=== PATIENT | male | born 2005 | race Caucasian/White ===

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

== ENCOUNTER 2023-01-23 22:21 | Emergency (ER) | payer BC, SELFPAY ==
[2023-01-23 22:24] VITALS: BP 159/93; PULSE 52; RESP 16; TEMP 36.9; O2SAT 96
[2023-01-23 22:32] VITALS: BP 148/102; PULSE 105; RESP 18; O2SAT 99
--- NOTE | 2023-01-23 22:35 | ECG_ITS ---
Measurements Intervals [place] Rate: 90 P: 36 MT: 123 QRS: -4 QRSD: 90 T: 22 QT: 332 QTc: 407 Interpretive Statements SINUS RHYTHM BASELINE ARTIFACT- I, II NORMAL ECG NO PREVIOUS ECG AVAILABLE FOR COMPARISON Electronically Signed On 01-24-2023 6:59:30 CDT by Guicho Fernando D.O.
[2023-01-23 23:40] VITALS: BP 131/84; PULSE 97; RESP 18; O2SAT 100
--- NOTE | 2023-01-24 00:39 | ED.GENADULT ---
HPI - General Adult General Chief complaint: Anxiety Stated complaint: anxiety Time Seen by Provider: 01/24/23 00:04 History of Present Illness HPI narrative: 17M h/o bipolar non compliant with medications presented with increased life stressors. Per patient, he has been having increased life stressors including new of a child, which have caused him anxiety over the past year. He was unable to find a psychiatrist, so presented to the ED for further evaluation. Stopped taking his bipolar medications because he didn't like the side effects. Denied SI/HI/VH/AH. Denied medical complaints. Denied headache, chest pain, shortness of breath, abdominal pain, fevers, chills, nausea, vomiting, dysuria, diarrhea, sick contacts. Past Medical History: bipolar Medications: denied compliance Allergies: No known drug allergies Related Data Allergies Allergy/AdvReac Type Severity Reaction Status Date / Time No Known Allergies Allergy Verified 01/13/21 21:56 Review of Systems Review of Systems: See HPI [facility] Past Medical History Medical History No active medical problems Social History Social History Smoking status: Current every day smoker Tobacco type: e-cigarettes/vaping Alcohol intake: never Substance use: never Substance use type: does not use Living arrangements: with family Gender identity (if verbalized by the patient): Male Exam Narrative: General: Alert, calm and cooperative, no acute distress, phonating, sitting comfortably during visit HEENT: Pupils equal round and reactive to light, extra ocular movements intact, no conjunctival injection, head atraumatic, neck supple without meningismus Cardiovascular: Regular rate and rhythm, no visible jugular venous distension Respiratory: Lungs clear to auscultation bilaterally, no wheezing/rales/rhonchi Abdominal: soft, non-tender, non-distended, no guarding, no rebound/peritoneal signs, no costovertebral tenderness to palpation Back: no midline tenderness to palpation, no step offs Extremities: No edema, palpable peripheral pulses, warm, well perfused, no tenderness to bilateral calves Neurological: Alert, moving all extremities symmetrically, ambulating without deficit Psych: calm and cooperative, goal oriented, normal jerel of speech Course Vital Signs Vital signs: Vital Signs Temperature 98.5 F 07/25/23 22:24 Pulse Rate 52 L 01/23/23 22:24 Respiratory Rate 16 01/23/23 22:24 Blood Pressure 159/93 H 01/23/23 22:24 Pulse Oximetry 96 01/23/23 22:24 Oxygen Delivery Room Air 01/23/23 22:24 Temperature 98.5 F 01/23/23 22:24 Pulse Rate 83 01/24/23 01:15 Respiratory Rate 16 01/24/23 01:15 Blood Pressure 128/63 01/24/23 01:15 Pulse Oximetry 100 01/24/23 01:15 Oxygen Delivery Room Air 01/23/23 22:24 Medical Decision Making MDM Narrative Medical decision making narrative: 17 year old male history of bipolar non compliant with medications presented with increased life stressors. Denied medical complaints. Physical exam benign, sitting comfortably, denied SI/HI/AH/VH, vitals stable. History and exam suggestive of untreated bipolar. Not acutely manic or in severe depressive state. Patient is in the process of finding a psychiatrist. The patient tolerated oral intake, is alert and oriented, speaking with clear speech, ambulated with steady gait, and has remained hemodynamically stable throughout the ED visit. Has close follow up with psychiatrist. Areas of diagnostic uncertainty discussed and strict return precautions shared with patient; encouraged to return to the emergency department if symptoms returned or worsened. The patient is safe to be discharged with follow up, provided he abide by the verbalized and written instructions, to which the patient has expressed understanding. Vital Signs Vital Signs: Lo
[2023-01-24] MEDS: LORazepam (*CRX) 1 MG TABLET PO (00:53)
[2023-01-24 01:15] VITALS: BP 128/63; PULSE 83; RESP 16; O2SAT 100
== END 2023-01-24 01:15 | disposition home or self-care (01) ==
PROVIDERS: Emergency Provider Emergency Medicine
DX: F41.9 Anxiety disorder, unspecified (principal); F31.9 Bipolar disorder, unspecified; T43.506A Underdosing of unspecified antipsychotics and neuroleptics, initial encounter; Z91.128 Patient's intentional underdosing of medication regimen for other reason; F17.290 Nicotine dependence, other tobacco product, uncomplicated
CPT/HCPCS: 93005; 99283; A9270

== ENCOUNTER 2023-01-27 23:14 | Emergency (ER) | payer BC, SELFPAY ==
--- NOTE | ~2023-01-27 | XR_ITS ---
XR chest 2V DATE: 01/28/2023 02:39 INDICATION: Left-sided chest pain. Panic attack. TECHNIQUE: PA and lateral views COMPARISON: None FINDINGS: Normal heart size. No hilar or mediastinal enlargement. No pulmonary infiltrate or consolid ation, pleural effusion or pulmonary vascular congestion or pneumothorax. Slight thoracic dextroscoli osis. IMPRESSION: No active cardiopulmonary disease Reviewed, dictated and finalized at location A.
[2023-01-27 23:43] VITALS: BP 136/87; PULSE 68; RESP 14; TEMP 36.4; O2SAT 100
--- NOTE | 2023-01-28 02:09 | ECG_ITS ---
Measurements Intervals [place] Rate: 68 P: 25 DE: 143 QRS: -5 QRSD: 108 T: 20 QT: 391 QTc: 416 Interpretive Statements SINUS RHYTHM WITH SINUS ARRHYTHMIA NORMAL ECG COMPARED TO ECG 01/23/2023 22:38:37 SINUS ARRHYTHMIA NOW PRESENT Electronically Signed On 01-28-2023 8:52:35 CDT by Guicho Fernando D.O.
--- NOTE | 2023-01-28 02:22 | ED.GENADULT ---
HPI - General Adult General Chief complaint: Anxiety Stated complaint: anxiety Time Seen by Provider: 01/28/23 02:03 History of Present Illness HPI narrative: Patient a 17-year-old gentleman who presents the emergency department with chief complaint of anxiety. Patient reports that he has history of anxiety and reports that he was seen in the emergency department recently after he has been having panic attacks the patient states has been having pain in his chest every day and feels as though the world is caving in on him patient denies suicidal or homicidal ideation reports that patient did report that he was on an antidepressant previously but that did not help and he stopped it Related Data Allergies Allergy/AdvReac Type Severity Reaction Status Date / Time No Known Allergies Allergy Verified 01/13/21 21:56 Review of Systems Review of Systems: A 10 system review of systems was completed on the patient and is negative except for what is stated in the HPI. Nursing and ancillary documentation was reviewed. [facility] Past Medical History Medical History No active medical problems Social History Social History Smoking status: Current every day smoker Tobacco type: e-cigarettes/vaping Alcohol intake: never Substance use: never Substance use type: does not use Living arrangements: with family Gender identity (if verbalized by the patient): Male Exam Narrative: GENERAL: Well-appearing, well-nourished, and in no acute distress. HEAD: Normocephalic, atraumatic. EYES: PERRLA and EOMI. ENT: Nares clear, no rhinorrhea or epistaxis. Mucous membranes moist. NECK: Supple. CHEST: Clear to auscultation. No respiratory distress. HEART: Regular rate and rhythm. No murmur heard. Normal peripheral pulses. ABDOMEN: Soft, nontender, nondistended, normal active bowel sounds. EXTREMITIES: Normal range of motion. No edema. SKIN: Warm, dry, no rash. NEURO: No focal deficits. Alert and oriented x3. PSYCH: Normal mood and affect. Course Vital Signs Vital signs: Vital Signs Temperature 36.4 C L 01/27/23 23:43 Pulse Rate 68 01/27/23 23:43 Respiratory Rate 14 01/27/23 23:43 Blood Pressure 136/87 01/27/23 23:43 Pulse Oximetry 100 01/27/23 23:43 Oxygen Delivery Room Air 01/27/23 23:43 Temperature 36.4 C L 01/27/23 23:43 Pulse Rate 72 01/28/23 02:28 Respiratory Rate 17 01/28/23 02:28 Blood Pressure 136/87 01/27/23 23:43 Pulse Oximetry 100 01/28/23 02:28 Oxygen Delivery Room Air 01/27/23 23:43 Medical Decision Making MDM Narrative Medical decision making narrative: Differential diagnosis includes anxiety disorder, panic attack, ACS, dysrhythmia, pneumothorax EKG showed sinus rhythm with a rate of [address] elevation or ST depression no acute ischemic changes present Chest x-ray showed no widened mediastinum no pneumothorax The patient was given a dose of hydroxyzine emergency department the patient be discharged home with as needed hydroxyzine for anxiety patient to follow-up with his primary care provider. Vital Signs Vital Signs: Vital Signs Temperature 36.4 C L 01/27/23 23:43 Pulse Rate 68 01/27/23 23:43 Respiratory Rate 14 01/27/23 23:43 Blood Pressure 136/87 01/27/23 23:43 Pulse Oximetry 100 01/27/23 23:43 Oxygen Delivery Room Air 01/27/23 23:43 Temperature 36.4 C L 01/27/23 23:43 Pulse Rate 72 01/28/23 02:28 Respiratory Rate 17 01/28/23 02:28 Blood Pressure 136/87 01/27/23 23:43 Pulse Oximetry 100 01/28/23 02:28 Oxygen Delivery Room Air 01/27/23 23:43 Discharge Plan Discharge Clinical Impression: Acute anxiety Patient Disposition: Home, Self-Care Condition: Stable Instructions: Antibiotic Form, Anxiety (ED) Prescriptions: New hydroxyzine pamoate 25 mg capsule
[2023-01-28] MEDS: hydrOXYzine HCL 25 MG TABLET PO (02:24)
[2023-01-28 02:28] VITALS: PULSE 72; RESP 17; O2SAT 100
[2023-01-28 02:50] VITALS: BP 157/101; PULSE 59; RESP 20; O2SAT 98
== END 2023-01-28 02:52 | disposition home or self-care (01) ==
PROVIDERS: Emergency Provider Emergency Medicine
DX: F41.9 Anxiety disorder, unspecified (principal); F17.290 Nicotine dependence, other tobacco product, uncomplicated
CPT/HCPCS: 71046; 93005; 99283; A9270

== ENCOUNTER 2024-01-21 18:40 | Emergency (ER) | payer BC, SELFPAY ==
[2024-01-21 18:41] VITALS: BP 146/73; PULSE 66; RESP 20; TEMP 36.4; O2SAT 100
--- NOTE | 2024-01-21 20:23 | PC.NURSE ---
patient left from waiting room, threw his full bottle of soda and wrist band on the floor while walking out.
== END 2024-01-21 22:12 | disposition left against medical advice (07) ==
DX: K08.89 Other specified disorders of teeth and supporting structures (principal)
CPT/HCPCS: 99199